=== PATIENT | male | born 1995 | race Caucasian/White ===

== ENCOUNTER 2024-11-02 11:31 | Emergency (ER) | payer MEDICAID ==
[~2024-11-02] VITALS: Ht 170.2 cm; Wt 88.0 kg
[2024-11-02 11:51] VITALS: BP 150/86; PULSE 66; RESP 16; TEMP 98; O2SAT 100
== END 2024-11-02 14:28 | disposition home or self-care (01) ==
LOC: ER 12:36
DX: D17.9 Benign lipomatous neoplasm, unspecified (principal)
CPT/HCPCS: 99281